=== PATIENT | female | born 1995 | race Caucasian/White ===

== ENCOUNTER 2018-05-06 21:11 | Outpatient (CLI) | payer OTHER ==
[2018-05-06 22:27] LABS: ADD MAN DIFF? NO
[2018-05-06 22:32] LABS: WHITE BLOOD COUNT 9.8 10^3/ul (4.8-10.8)
[2018-05-06 22:32] LABS: BASOPHILS % 0.4 % (0.0-2.0); EOSINOPHILS # 0.1 10^3/ul (0.0-0.5); EOSINOPHILS % 1.2 % (0.0-7.0); HEMATOCRIT 34.1 % (37.0-47.0); HEMOGLOBIN 11.4 g/dl (12.0-16.0); LYMPHOCYTES # 2.7 10^3/ul (0.8-2.9); LYMPHOCYTES % 27.8 % (15.0-51.0); MEAN CORPUSCULAR HEMOGLOBIN 32.6 pg (29.0-33.0); MEAN CORPUSCULAR HGB CONC 33.4 g/dl (32.0-37.0); MEAN CORPUSCULAR VOLUME 97.4 fl (82.0-101.0); MEAN PLATELET VOLUME 9.3 fl (7.4-10.4); MONOCYTE # 0.7 10^3/ul (0.3-0.9); MONOCYTES % 7.3 % (0.0-11.0); NEUTROPHIL # 6.1 10^3/ul (1.6-7.5); NEUTROPHILS % 61.9 % (39.0-77.0); PLATELET COUNT 338 10^3/UL (140-415); RED CELL DISTRIBUTION WIDTH 12.2 % (11.5-14.5)
[2018-05-06 22:44] LABS: ADD UMIC YES; UR ASCORBIC ACID NEGATIVE (NEGATIVE); UR BILIRUBIN (Dip) NEGATIVE (NEGATIVE); UR BLOOD (Dip) 3+ mg/dL (NEGATIVE); UR CLARITY CLOUDY (CLEAR); UR COLOR RED (YELLOW); UR GLUCOSE (Dip) NEGATIVE (NEGATIVE); UR KETONES (Dip) NEGATIVE (NEGATIVE); UR LEUKOCYTE ESTERASE (Dip) NEGATIVE Leu/ul (NEGATIVE); UR MUCUS FEW /HPF (NONE SEEN); UR NITRITE (Dip) NEGATIVE (NEGATIVE); UR RBC > 182 /HPF (0-5); UR SPECIFIC GRAVITY (Dip) 1.019 (1.003-1.030); UR SQUAMOUS EPITHELIAL CELL FEW /HPF (FEW); UR TOTAL PROTEIN (Dip) 2+ mg/dl (NEGATIVE); UR UROBILINOGEN (Dip) NEGATIVE (NEGATIVE); UR WBC 34 /HPF (0-5)
== END 2018-05-06 23:28 | disposition home or self-care (01) ==
LOC: OBT 21:11 → L-D 21:12 → OBT 23:28
DX: O26.893 Other specified pregnancy related conditions, third trimester (principal); R10.2 Pelvic and perineal pain; Z3A.31 31 weeks gestation of pregnancy
CPT/HCPCS: 76815; 76817; 76818; 81001; 85025; 87086

== ENCOUNTER 2018-07-06 23:55 | Inpatient (IN) | payer OTHER ==
[2018-07-07] MEDS ORDERED: CARBOPROST 250 MCG INJ IM ×2 (01:00→13:30)
[2018-07-07] MEDS ORDERED: OXYTOCIN 30 UNITS/LR 500 ML IV ×2 (01:00→13:30)
[2018-07-07] MEDS ORDERED: METHYLERGONOVINE 0.2 MG INJ IM ×2 (01:00→13:30)
[2018-07-07] MEDS ORDERED: BUTORPHANOL 2 MG INJ IV (01:00)
[2018-07-07] MEDS ORDERED: MISOPROSTOL 200 MCG TAB PR ×2 (01:00→13:30)
[2018-07-07] MEDS ORDERED: LIDOCAINE 1% (MPF) 30 ML INJ INJ (01:00)
[2018-07-07] MEDS: LACTATED RINGER'S 1,000 ML IV ×3 (01:27→07:04)
[2018-07-07 01:59] LABS: ADD MAN DIFF? NO
[2018-07-07 02:02] LABS: BASOPHIL # 0.1 10^3/ul (0.0-0.1); BASOPHILS % 0.4 % (0.0-2.0); EOSINOPHILS # 0.1 10^3/ul (0.0-0.5); EOSINOPHILS % 0.8 % (0.0-7.0); HEMATOCRIT 37.2 % (37.0-47.0); HEMOGLOBIN 12.8 g/dl (12.0-16.0); LYMPHOCYTES # 2.7 10^3/ul (0.8-2.9); LYMPHOCYTES % 23.3 % (15.0-51.0); MEAN CORPUSCULAR HEMOGLOBIN 32.8 pg (29.0-33.0); MEAN CORPUSCULAR HGB CONC 34.4 g/dl (32.0-37.0); MEAN CORPUSCULAR VOLUME 95.4 fl (82.0-101.0); MEAN PLATELET VOLUME 10.1 fl (7.4-10.4); MONOCYTE # 0.8 10^3/ul (0.3-0.9); MONOCYTES % 6.7 % (0.0-11.0); NEUTROPHIL # 7.9 10^3/ul (1.6-7.5); NEUTROPHILS % 67.5 % (39.0-77.0); PLATELET COUNT 308 10^3/UL (140-415); RED CELL DISTRIBUTION WIDTH 12.9 % (11.5-14.5)
[2018-07-07 02:02] LABS: WHITE BLOOD COUNT 11.8 10^3/ul (4.8-10.8)
[2018-07-07 02:23] LABS: INR 0.85; PROTIME 11.7 Sec (11.9-14.9); PT RATIO 0.9
[2018-07-07 02:24] LABS: PARTIAL THROMBOPLASTIN TIME 28.1 Sec (23.0-35.0)
[2018-07-07] MEDS ORDERED: ROPIVACAINE 0.2% 100 ML (03:12)
[2018-07-07] MEDS ORDERED: FENTAnyl 50 MCG/ML VIAL ×2 (04:04)
[2018-07-07] MEDS ORDERED: FENTAnyl 2MCG/ML-ROPIV 0.2% 100 ML BAG EPI (04:30)
[2018-07-07] MEDS ORDERED: DIPHENHYDRAMINE 50 MG INJ IV ×2 (04:30→13:30)
[2018-07-07] MEDS ORDERED: ONDANSETRON 4 MG INJ IV ×2 (04:30→13:30)
[2018-07-07] MEDS ORDERED: NALOXONE (0.4 MG/ML) INJ IV (04:30)
[2018-07-07] MEDS ORDERED: ROPIVACAINE 0.2% 100ML BAG EPI (04:30)
[2018-07-07 07:17] LABS: HEPATITIS B SURFACE ANTIGEN NEGATIVE (NEGATIVE)
[2018-07-07] MEDS: OXYTOCIN 30 UNITS/LR 500 ML IV ×3 (12:15→13:07)
[2018-07-07] MEDS: LACTATED RINGER'S 1,000 ML IV* ×2 (13:07→21:07)
[2018-07-07] MEDS: DEXTROSE 5%-LR 1,000 ML IV ×2 (13:07→21:07)
[2018-07-07] MEDS ORDERED: ZOLPIDEM 5 MG TAB PO (13:30)
[2018-07-07] MEDS ORDERED: ACETAMINOPHEN 325 MG TAB PO (13:30)
[2018-07-07] MEDS ORDERED: OXYCODONE/ASPIRIN (4.88/325) TAB PO (13:30)
[2018-07-07] MEDS ORDERED: DIBUCAINE 1% 30 GM OINT TOP (13:30)
[2018-07-07] MEDS ORDERED: SENNA/DOCUSATE NA (8.6MG/50MG) TAB PO (13:30)
[2018-07-07 16:04] LABS: RAPID PLASMA REAGIN NONREACTIVE (NR)
[2018-07-07] MEDS: IBUPROFEN 600 MG TAB PO ×2 (18:08→23:45)
[2018-07-07] MEDS: LANOLIN HPA 1 PKT TOP (18:08)
[2018-07-07] MEDS: WITCH HAZEL/GLYCERIN PAD PR (18:08)
[2018-07-07] MEDS: BENZOCAINE 20% 56 ML SPRAY TOP (18:08)
[2018-07-08] MEDS: DEXTROSE 5%-LR 1,000 ML IV (05:07)
[2018-07-08] MEDS: LACTATED RINGER'S 1,000 ML IV* (05:07)
[2018-07-08] MEDS: IBUPROFEN 600 MG TAB PO ×4 (05:54→23:32)
[2018-07-08 08:05] LABS: ADD MAN DIFF? NO
[2018-07-08 08:14] LABS: BASOPHILS % 0.3 % (0.0-2.0); EOSINOPHILS # 0.1 10^3/ul (0.0-0.5); EOSINOPHILS % 0.7 % (0.0-7.0); HEMATOCRIT 34.2 % (37.0-47.0); HEMOGLOBIN 11.2 g/dl (12.0-16.0); LYMPHOCYTES # 2.9 10^3/ul (0.8-2.9); LYMPHOCYTES % 21.4 % (15.0-51.0); MEAN CORPUSCULAR HEMOGLOBIN 31.9 pg (29.0-33.0); MEAN CORPUSCULAR HGB CONC 32.7 g/dl (32.0-37.0); MEAN CORPUSCULAR VOLUME 97.4 fl (82.0-101.0); MONOCYTE # 0.8 10^3/ul (0.3-0.9); MONOCYTES % 5.5 % (0.0-11.0); NEUTROPHIL # 9.6 10^3/ul (1.6-7.5); PLATELET COUNT 240 10^3/UL (140-415); RED BLOOD COUNT 3.51 10^6/ul (4.20-5.40); RED CELL DISTRIBUTION WIDTH 13.2 % (11.5-14.5)
[2018-07-08 08:14] LABS: WHITE BLOOD COUNT 13.5 10^3/ul (4.8-10.8)
[2018-07-09] MEDS: IBUPROFEN 600 MG TAB PO ×2 (05:31→11:31)
[2018-07-09] MEDS ORDERED: MEASLES,MUMPS,RUBELLA VACCINE INJ SC* (09:00)
[2018-07-09] MEDS: DIPHTH/TET/ACEL PERTUSS (ADULT) 0.5 ML VIAL IM* (11:32)
== END 2018-07-09 16:10 | disposition home or self-care (01) | DRG 807 ==
LOC: OBT 23:55 → L-D 23:55 → PP1 07-07 12:48
PROVIDERS: Obstetrics & Gynecology
PROC: 10E0XZZ Delivery of Products of Conception, External Approach (ICD-10-PCS; principal; 2018-07-07)
PROC: 0W8NXZZ Division of Female Perineum, External Approach (ICD-10-PCS; 2018-07-07)
DX: O48.0 Post-term pregnancy (principal); Z37.0 Single live birth; Z3A.40 40 weeks gestation of pregnancy
CPT/HCPCS: 62319; 85025; 85610; 85730; 86592; 86850; 86900; 86901; 87340; 90715